=== PATIENT | male | born 2000 | race African-American/Black ===

== ENCOUNTER 2021-04-23 12:49 | Emergency (ER) | payer OTHER ==
[2021-04-23 12:55] VITALS: BP 110/68; PULSE 65; TEMP 98; BMI 33.6
[2021-04-23] MEDS ORDERED: ACETAMINOPHEN/CAFFEINE/BUTALBITAL 1 TAB PO ONE (13:48)
[2021-04-23] MEDS ORDERED: ACETAMINOPHEN/CAFFEINE/BUTALBITAL 1 TAB ONE (14:00)
== END 2021-04-23 16:22 | disposition home or self-care (01) ==
LOC: JERFT 12:49 → JER 12:49 → JERFT 16:22
DX: R51.9 Headache, unspecified (principal)
CPT/HCPCS: 99283-25; C9803; U0003; U0005

== ENCOUNTER 2021-07-04 09:07 | Emergency (ER) | payer OTHER ==
[2021-07-04 09:42] VITALS: BP 142/75; PULSE 94; TEMP 98.6; BMI 34.0
[2021-07-04] MEDS ORDERED: ACETAMINOPHEN 500 MG TABLET (FP) PO ONE (10:54)
[2021-07-04] MEDS ORDERED: ACETAMINOPHEN 500 MG TABLET (FP) ONE (11:21)
== END 2021-07-04 11:42 | disposition home or self-care (01) ==
LOC: JER 09:07
DX: J06.9 Acute upper respiratory infection, unspecified (principal)
CPT/HCPCS: 87804; 87807; 99283-25; C9803; U0003; U0005

== ENCOUNTER 2022-12-15 12:09 | Emergency (ER) | payer OTHER ==
[2022-12-15 12:15] VITALS: BP 129/41; PULSE 67; RESP 18; TEMP 98.1; BMI 38.2
== END 2022-12-15 12:49 | disposition home or self-care (01) ==
LOC: JERFT 12:09
DX: J06.9 Acute upper respiratory infection, unspecified (principal); B99.9 Unspecified infectious disease; R51.9 Headache, unspecified; R07.0 Pain in throat; R53.81 Other malaise; Z20.822 Contact with and (suspected) exposure to COVID-19
CPT/HCPCS: 0241U-QW; 99283-25